=== PATIENT | female | born 1965 | race Caucasian/White ===

== ENCOUNTER 2021-02-13 19:59 | Emergency (ER) | payer SELFPAY ==
[~2021-02-13] VITALS: Ht 172.7 cm; Wt 124.7 kg
[~2021-02-13 19:59] MED LIST: Budeprion Xl300 MG PO; CEPH500 PO; LISI20 PO; METF500 PO; METPRE4DP PO; Norco 5-325 Ta1 EACH PO
[2021-02-13] MEDS ORDERED: Cyclobenzaprine5 MG PO (22:23)
== END 2021-02-13 22:30 | disposition home or self-care (01) ==
LOC: ER 19:59
DX: S39.012A Strain of muscle, fascia and tendon of lower back, initial encounter (principal); E11.9 Type 2 diabetes mellitus without complications; I10 Essential (primary) hypertension; M62.830 Muscle spasm of back; X58.XXXA Exposure to other specified factors, initial encounter
CPT/HCPCS: 99283; A9270

== ENCOUNTER 2024-02-02 23:04 | Emergency (ER) | payer OTHER ==
[~2024-02-02] VITALS: Ht 172.7 cm; Wt 113.4 kg
[~2024-02-02 23:04] MED LIST changes: +Aspir 8181 MG PO; +Budeprion Xl300 MG; +CYCL10 PO; +Cyclobenzaprine5 MG PO; +Lovastatin20 MG PO
[2024-02-02 23:33] VITALS: BP 139/75
[2024-02-03] MEDS ORDERED: IBU600 MG PO (01:30)
[2024-02-03] MEDS ORDERED: METPRE4DP PO (01:30)
[2024-02-03] MEDS ORDERED: Ibuprofen 600 MG Tab PO ONE (01:30)
== END 2024-02-03 01:47 | disposition home or self-care (01) ==
LOC: ER 23:04
DX: G56.02 Carpal tunnel syndrome, left upper limb (principal); E11.9 Type 2 diabetes mellitus without complications; I10 Essential (primary) hypertension; Z79.82 Long term (current) use of aspirin; Z79.84 Long term (current) use of oral hypoglycemic drugs; Z79.899 Other long term (current) drug therapy
CPT/HCPCS: 99283; A9270

== ENCOUNTER 2024-08-31 12:06 | Day surgery (SDC) | payer OTHER ==
[~2024-08-31] VITALS: Ht 175.3 cm; Wt 117.6 kg
[~2024-08-31 12:06] MED LIST changes: +Balanced Salt Epinephrine Irrigation Solution 500 mL IR SCH; -Budeprion Xl300 MG; +Diazepam 5 MG Tab PO PRN; +Diazepam 5 MG Tab PO SCH; +IBU600 MG PO; +Lidocaine HCl/Pf 1% 5 ML VIAL XX SCH; +Moxifloxacin HCL 0.5 MG/0.1 ML 0.4MLSYR LEFTEYE SCH; +Ondansetron 4 MG SoluTab MM PRN; +PHENYLEPHRINE\\TROPICAMIDE\\TETRACAINE OPHTHALMIC DILATING SOLN LEFTEYE PRN; +Povidone-Iodine 450 DROP/30 ML Solution LEFTEYE SCH; +Povidone-Iodine 450 DROP/30 ML Solution ONE; +Tetracaine HCl/Pf 0.5% Opth Soln 4 ml ONE; +Triamcinolone Inj Susp 40 MG / ML 1ML Vial INJ SCH; +Triamcinolone Inj Susp 40 MG / ML 1ML Vial ONE
[2024-08-31] MEDS ORDERED: Midazolam HCl 1MG / ML 2ML Vial ONE (12:54)
[2024-08-31 13:28] VITALS: BP 106/64
--- NOTE | 2024-08-31 13:44 | NUR ---
08/31/24 [id number] Tiesha Mckinney D/C INSTRUCTIONS GIVEN TO PT, UNDERSTANDING VERBALIZED. PT HAS ALL BELONGINGS W/ HER, INCLUDING EYE KIT. PT DENIES PAIN/NAUSEA, TOLERATING JUICE & STRING CHEESE W/O COMPLAINT. VSS, ON RA. PT WHEELED TO PRIVATE VEHICLE, STEADY GAIT NOTED UPON TRANSFER FROM TO VEHICLE. NO VISIBLE SIGNS OF DISTRESS NOTED.
[2024-08-31] MEDS ORDERED: Tetracaine HCl/Pf 0.5% Opth Soln 4 ml ONE (14:07)
== END 2024-08-31 13:40 | disposition home or self-care (01) ==
LOC: ORSCSDS 12:06
PROVIDERS: Ophthalmology
PROC: 08RK3JZ Replacement of Left Lens with Synthetic Substitute, Percutaneous Approach (ICD-10-PCS; principal; 2024-08-31 13:30)
DX: E11.36 Type 2 diabetes mellitus with diabetic cataract (principal); H25.812 Combined forms of age-related cataract, left eye; H21.81 Floppy iris syndrome; Z96.1 Presence of intraocular lens; I10 Essential (primary) hypertension; Z79.82 Long term (current) use of aspirin; Z79.84 Long term (current) use of oral hypoglycemic drugs; Z79.899 Other long term (current) drug therapy
CPT/HCPCS: 82947; J2250; J3301; V2632